=== PATIENT | male | born 2000 | race Caucasian/White ===

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

== ENCOUNTER 2019-12-08 09:12 | Emergency (ER) | payer BC, OTHER ==
[~2019-12-08] VITALS: Ht 182.9 cm; Wt 100.0 kg
[~2019-12-08 09:12] MED LIST changes: -HYDROmorphone 2 MG/ML VIAL IV PRN; -IV RINGERS,LACTATED 1000ML 1,000 ML IV SCH; -LAMO100T PO; +LAMO100T8 PO; -LIDOCAINE 1% PF 2 ML VIAL. ID PRN; -MORPHINE SULFATE 2 MG/ML VIAL. IV PRN; -PROCHLORPERAZINE 10 MG/2 ML VIAL. IV PRN; -PROPOFOL 20 ML IV ONE; -PROPOFOL 40 ML IV ONE; -fentaNYL PF VIAL 100 MCG/2 ML VIAL IV PRN
[2019-12-08 09:31] VITALS: BP 166/90
[2019-12-08] MEDS ORDERED: clonazePAM 0.5 MG TABLET PO PRN (09:45)
--- NOTE | 2019-12-08 10:05 | RAD ---
EXAM: Head CT without contrast. HISTORY: Diplopia. Closed head injury. TECHNIQUE: Computed tomographic images of the head were obtained without contrast. *One or more of the following individualized dose reduction techniques were utilized for this examination: 1. Automated exposure control. 2. Adjustment of the mA and/or kV according to patient size. 3. Use of iterative reconstruction technique. COMPARISON: None. FINDINGS: There is no acute or subacute extra-axial or intraparenchymal hemorrhage. There is no mass effect or midline shift. There is no hydrocephalus. The garnett-white matter differentiation pattern is intact. There is paranasal sinus mucosal thickening. The mastoid air cells are clear. There is a suspected posterior superior right scalp soft tissue hematoma. No fracture is seen. IMPRESSION: 1. Suspected posterior superior right scalp soft tissue hematoma. 2. No acute intracranial finding. Electronically signed by: Jennifer Donovan MD (12/08/2019 10:02 AM) [id number]
--- NOTE | 2019-12-08 10:20 | PHYS DOC ---
Past Medical History Past Medical History: Anxiety, Asthma, Depression Additional Past Medical Histor: ATYPICAL AUTISM, ADHD, BORDERLINE PERSONALITY, PANIC ATTACKS Past Surgical History: No Surgical History Additional Past Surgical Histo: TESTICULAR TORSION SURGERY Smoking Status: Current Every Day Smoker Alcohol Use: Occasionally Drug Use: None General Adult EDM: Chief Complaint: HEAD INJURY/TRAUMA HPI: HPI: Patient is a 19 year old male with a history of anxiety and depression who presents to the Emergency Room complaining of double vision. Patient states last night he slipped getting out of the car and fell backwards hitting his head. He denies LOC. Patient is able to remember all of the events surrounding the incident. He states that he had some bleeding in the back of his head but he was able to get it stopped. He was awake for a couple of hours after that and felt normal. He woke up this morning and had an episode of vomiting. He then noticed he had double vision and has since had another episode of vomiting. He denies any numbness or weakness in any of his limbs. He denies any confusion. He does have a history of anxiety is feeling very anxious at this time. Review of Systems: Review of Systems: General: Denies fever, chills, sweats, fatigue Eyes: Denies drainage, blurred vision, eye redness reports double vision HENT: Denies rhinorrhea, sore throat, earache Respiratory: Denies cough, shortness of breath, wheezing Cardiac: Denies edema, palpitations, chest pain GI: Denies abdominal pain, Nausea. Reports vomiting MSK: Denies back pain, neck pain Skin: Denies rash, jaundice Neuro: Denies headache, dizziness Psychiatric: Denies SI/HI reports anxiety Heart Score: Risk Factors: Risk Factors: DM, Current or recent (<one month) smoker, HTN, HLP, family history of CAD, obesity. Risk Scores: Score 0 - 3: 2.5% MACE over next 6 weeks - Discharge Home Score 4 - 6: 20.3% MACE over next 6 weeks - Admit for Clinical Observation Score 7 - 10: 72.7% MACE over next 6 weeks - Early Invasive Strategies Current Medications: Current Medications Medications (Trade) Dose Ordered Sig/Soraya Start Time Stop Time Status Last Admin Dose Admin Clonazepam (KlonoPIN) 1 mg PRN 1X PRN 12/08/19 09:45 12/08/19 09:46 1 MG Allergies: Allergies: Allergies Coded Allergies Type Severity Reaction Last Updated Verified No Known Drug Allergies 11/14/17 No Physical Exam: PE: General: Awake, alert, NAD. Well Nourished, well hydrated. Cooperative HEENT: Atraumatic, EOMI, PERRL, airway patent, moist oral mucosa Neck: Supple, trachea midline Respiratory: CTA bilaterally, normal effort, no wheezing/crackles CV: RRR, no murmur, cap refill <2 GI: Soft, nondistended, nontender, no masses MSK: No obvious deformities Skin: Warm, dry, intact Neuro: A&O x3, speech NL, 5/5 strength in BUE/BLE distally and proximally, CN 2- 12 intact, cerebellar testing normal Psych: Anxious, not suicidal or homicidal Current Patient Data: Vital Signs: Vital Signs Date Time Temp Pulse Resp B/P (MAP) Pulse Ox O2 Delivery O2 Flow Rate FiO2 12/08/19 09:31 98.3 93 18 166/90 (115) 98 Room Air 98.3 EKG: EKG: [] Radiology/Procedures: Radiology/Procedures: [] Course & Med Decision Making: Course & Med Decision Making Pertinent Labs and Imaging studies reviewed. (See chart for details) Patient is 19-year-old male presents the emergency room with closed head injury. Patient will need a tetanus shot here in the emergency room. He does have double vision and has had 2 episodes of vomiting this morning. Given the symptoms we will do a CT head to rule out an intracranial bleed. Patient is very anxious and will be given his morning medications. CT head is negative. Patient otherwise has a normal neurologic exam. Patient likely has a concussion. I have given him concussion precautions and will have him follow-up with sports medicine. Patient's test results and vitals while in the ED were fully reviewed and discussed with the patient. Patient is stable and at this time does not need admission to the hospital. We have discussed strict return precautions and the importance of following up with their Primary Care Physician. Patient stated understanding and was given an opportunity to ask any questions. Patient is in agreement with plan. Dragon Disclaimer: Cecy Disclaimer: This electronic medical record was generated, in whole or in part, using a voice recognition dictation system. Departure Departure Impression: Primary Impression: Concussion Disposition: HOME, SELF-CARE Condition: STABLE Referrals: GIOVANNA PINZON MD (PCP) Patient Instructions: Concussion and Brain Injury, [id number] Justicifation of Admission Dx: Justifications for Admission: Justification of Admission Dx: N/A ANTHONY MORA MD Dec 08, 2019 10:20
== END 2019-12-08 10:44 | disposition home or self-care (01) ==
LOC: ER 09:12
DX: S06.0X0A Concussion without loss of consciousness, initial encounter (principal); R11.10 Vomiting, unspecified; H53.2 Diplopia; F32.9 Major depressive disorder, single episode, unspecified; F41.9 Anxiety disorder, unspecified; J45.909 Unspecified asthma, uncomplicated; F90.9 Attention-deficit hyperactivity disorder, unspecified type; F17.200 Nicotine dependence, unspecified, uncomplicated; W01.198A Fall on same level from slipping, tripping and stumbling with subsequent striking against other object, initial encounter; Y93.89 Activity, other specified; Y92.89 Other specified places as the place of occurrence of the external cause; Y99.8 Other external cause status
CPT/HCPCS: 70450; 99284